=== PATIENT | female | born 1990 | race Caucasian/White ===

== ENCOUNTER → 2021-04-14 | Outpatient (CLI) | payer OTHER ==
[2021-04-14 15:22] LABS: Basophils # (A) 0.04 X 10*3/uL (0.00-0.10); Basophils % (A) 0.3 %; Eosinophils % (A) 0.8 %; HCT 44.8 % (37.2-46.3); HGB 14.7 g/dL (12.0-15.0); Lymphocytes # (A) 3.66 X 10*3/uL (0.90-5.00); Lymphocytes % (A) 30.2 %; MCH 29.4 pg (27.0-32.0); MCHC 32.8 g/dL (32.0-37.0); MCV 89.6 fL (80.0-97.0); Mean Platelet Volume 10.2 fL (9.5-12.2); Monocytes # (A) 0.76 X 10*3/uL (0.20-1.00); Monocytes % (A) 6.3 %; Neutrophils # (A) 7.52 X 10*3/uL (1.80-7.70); Neutrophils % (A) 62.2 %; Platelet Count 256 X 10*3/uL (140-440); RDW 13.1 % (11.5-14.5); WBC 12.11 X 10*3/uL (4.50-10.00)
[2021-04-15 00:25] LABS: African American GFR (CKD) 131.9 (60.0-200.0); Albumin 4.5 g/dL (3.80-4.90); Albumin/Globulin Ratio 1.55 (1.60-3.17); Anion Gap 12.6 mmol/L (4.00-12.00); BUN/Creat Ratio 15.71 Ratio (12.00-20.00); Calcium 9.6 mg/dL (8.7-10.3); Carbon Dioxide 20.4 mmol/L (21.6-31.8); Globulin 2.9 g/dL (1.6-3.3); HCG,Quantitative Serum 10356.8 mIU/mL; Non-African American GFR(CKD) 113.8 (60.0-200.0); Potassium 4.2 mmol/L (3.5-5.5); Total Bilirubin 0.4 mg/dL (0.3-1.2); Total Protein 7.4 g/dL (6.2-8.2)
== END | disposition home or self-care (01) ==
LOC: LABWHC1 10:22
PROVIDERS: ATTEND Family Medicine
DX: O09.90 Supervision of high risk pregnancy, unspecified, unspecified trimester (principal); Z3A.00 Weeks of gestation of pregnancy not specified
CPT/HCPCS: 36415; 80053; 84702; 85025; 86592; 86780; 87340

== ENCOUNTER 2022-03-30 17:06 | Emergency (ER) | payer OTHER ==
--- NOTE | 2022-03-30 17:51 | ED ---
General Adult HPI - General Chief complaint: Fall Stated complaint: altered mental status Time Seen by Provider: 03/30/22 17:17 Source: patient Mode of arrival: EMS - History of Present Illness Initial comments: Dictation was produced using [employer] dictation software. please excuse any grammatical, word or spelling errors. Chief Complaint: Patient 32-year-old female presents emergency department for syncope fall and concerns of opiate toxicity History of Present Illness: Is a 32-year-old female she was brought in by EMS from [facility]. Patient was trying to check in for polysubstance abuse. While being checked in she was noted to the very sleepy. She fell and struck her head per EMS. She is placed in a c-collar brought to the emergency room. Patient did admit to EMS that she used heroin and crack today. She states that she's been sleepy ever since being . She states she is 26 weeks. She denies any complaints at this time. Patient is a poor historian. She sleepy at the bedside. The ROS documented in this emergency department record has been reviewed and confirmed by me. Those systems with pertinent positive or negative responses have been documented in the HPI. All other systems are other negative and/or no ncontributory. PHYSICAL EXAM: General Impression: Alert and oriented x3, not in acute distress, sleepy but arousable with voice HEENT: Normocephalic atraumatic, extra-ocular movements intact, pupils equal and reactive to light bilaterally, mucous membranes moist. Cardiovascular: Heart regular rate and rhythm Chest: Able to complete full sentences, no retractions, no tachypnea Abdomen: abdomen soft, non-tender, non-distended, no organomegaly, gravid Musculoskeletal: Pulses present and equal in all extremities, no peripheral edema Motor: no focal deficits noted Neurological: CN II-XII grossly intact, no focal motor or sensory deficits noted Skin: Intact with no visualized rashes Psych: Normal affect and mood ED course: 32 yo female who is allegedly 26 weeks presents after synco pe and fall. Patient does have physical exam features to suggest opiate toxicity. She is sleepy however she is not respiratory depressed. Signs upon arrival are within acceptable limits. Patient does not have any signs of traumatic injuries. Patient became agitated and belligerent at approximately 8:00 PM. She did not appear to be showing signs of opiate toxidrome. CBC unremarkable. Metabolic panel shows mild hyperglycemia with the level of 69. Rest of metabolic panel is negative. Patient given dextrose and oral intake. Repeat blood glucose levels are normal. Computed tomography scan of the brain and C-spine shows no acute processes. Patient c-collar was cleared. EKG interpretation: Ventricular rate, sinus rhythm,. 140, care is 113, QTc 450. No IA prolongation, no QTC prolongation, no ST or T-wave changes noted. Overall, this EKG is unremarkable ultrasound was obtained showing no acute processes. There is a single live intrauterine . 5 weeks and 5 days per ultrasound measurements. Heart rate is 126. No obstetrical complications this ultrasound. Patient related bedside 9:45 PM found to be stable medical condition. Patient is awake alert and well-appearing. 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 Patient is urged not to use any illicit substances during this because but may put baby and herself at risk. Patient understands. She is advised to follow-up with her electronics hardware design engineer. Patient told to continue taking vitamins. - Related Data Home Medications Medication Instructions Recorded Confirmed Acetaminophen [Tylenol 8 Hour] 650 mg PO Q6H PRN 03/30/22 03/30/22 Folagent Dha Supplement 1 cap PO DAILY 03/30/22 03/30/22 Zofran (Unknown Dose) 1 dose PO Q6H PRN 03/30/22 03/30/22 Allergies Allergy/AdvReac Type Severity Reaction Status Date / Time No Known Allergies Allergy Verified 03/30/22 17:54 Review of Systems ROS Statement: Those systems with pertinent positive or pertinent negative responses have been documented in the HPI. ROS Other: All systems not noted in ROS Statement are negative. Past Medical History Past Medical History: No Reported History History of Any Multi-Drug Resistant Organisms: None Reported Past Surgical History: No Surgical Hx Reported Past Psychological History: No Psychological Hx Reported Smoking Status: Current every day smoker Past Alcohol Use History: None Reported Past Drug Use History: Heroin, IV Drug Use Course Vital Signs 03/30/22 03/30/22 17:11 18:56 Temperature 98.1 F Pulse Rate 78 67 Respiratory 18 14 Rate Blood Pressure 108/66 112/75 O2 Sat by Pulse 98 99 Oximetry Medical Decision Making - Lab Data Result diagrams: 03/30/22 18:23 03/30/22 18:23 Lab Results 03/30/22 03/30/22 03/30/22 Range/Units 18:23 18:23 18:23 WBC 8.2 (3.8-10.6) k/uL RBC 3.77 L (3.80-5.40) m/uL Hgb 11.4 (11.4-16.0) gm/dL Hct 33.4 L (34.0-46.0) % MCV 88.6 (80.0-100.0) fL MCH 30.3 (25.0-35.0) pg MCHC 34.2 (31.0-37.0) g/dL RDW 12.7 (11.5-15.5) % Plt Count 213 (150-450) k/uL MPV 7.5 Neutrophils % 66 % Lymphocytes % 25 % Monocytes % 5 % Eosinophils % 2 % Basophils % 0 % Neutrophils # 5.3 (1.3-7.7) k/uL Lymphocytes # 2.1 (1.0-4.8) k/uL Monocytes # 0.4 (0-1.0) k/uL Eosinophils # 0.1 (0-0.7) k/uL Basophils # 0.0 (0-0.2) k/uL Sodium 134 L (137-145) mmol/L Potassium 2.9 L (3.5-5.1) mmol/L Chloride 102 (98-107) mmol/L Carbon Dioxide 26 (22-30) mmol/L Anion Gap 6 mmol/L BUN 6 L (7-17) mg/dL Creatinine 0.52 (0.52-1.04) mg/dL Est GFR (CKD-EPI)AfAm >90 (>60 ml/min/1.73 sqM) Est GFR (CKD-EPI)NonAf >90 (>60 ml/min/1.73 sqM) Glucose 69 L (74-99) mg/dL Calcium 8.8 (8.4-10.2) mg/dL Urine Opiates Screen Detected H (NotDetected) Ur Oxycodone Screen Not Detected (NotDetected) Urine Methadone Screen Not Detected (NotDetected) Ur Propoxyphene Screen Not Detected (NotDetected) Ur Barbiturates Screen Not Detected (NotDetected) U Tricyclic Antidepress Not Detected (NotDetected) Ur Phencyclidine Scrn Not Detected (NotDetected) Ur Amphetamines Screen Not Detected (NotDetected) U Methamphetamines Scrn Not Detected (NotDetected) U Benzodiazepines Scrn Not Detected (NotDetected) Urine Cocaine Screen Detected H (NotDetected) U Marijuana (THC) Screen Not Detected (NotDetected) Disposition Clinical Impression: Opiate dependence Disposition: HOME SELF-CARE Condition: Fair Instructions (If sedation given, give patient instructions): Opioid Use Disorder (ED), at 23 to 26 Weeks (ED) Additional Instructions: Follow-up with the electronics hardware design engineer. Is patient prescribed a controlled substance at d/c from ED?: No Time of Disposition: 21:43
[2022-03-30 18:28] LABS: Basophils % (A) 0 %; Eosinophils # (A) 0.1 k/uL (0-0.7); Eosinophils % (A) 2 %; HCT 33.4 % (34.0-46.0); HGB 11.4 gm/dL (11.4-16.0); Lymphocytes # (A) 2.1 k/uL (1.0-4.8); Lymphocytes % (A) 25 %; MCH 30.3 pg (25.0-35.0); MCHC 34.2 g/dL (31.0-37.0); MCV 88.6 fL (80.0-100.0); Mean Platelet Volume 7.5; Monocytes # (A) 0.4 k/uL (0-1.0); Monocytes % (A) 5 %; Neutrophils # (A) 5.3 k/uL (1.3-7.7); Neutrophils % (A) 66 %; Platelet Count 213 k/uL (150-450); RBC 3.77 m/uL (3.80-5.40); RDW 12.7 % (11.5-15.5); WBC 8.2 k/uL (3.8-10.6)
[2022-03-30 18:36] LABS: African American GFR (CKD) >90 (>60 ml/min/1.73 sqM); Anion Gap 6 mmol/L; Blood Urea Nitrogen 6 mg/dL (7-17); Calcium 8.8 mg/dL (8.4-10.2); Carbon Dioxide 26 mmol/L (22-30); Chloride 102 mmol/L (98-107); Glucose 69 mg/dL (74-99); Non-African American GFR(CKD) >90 (>60 ml/min/1.73 sqM); Potassium 2.9 mmol/L (3.5-5.1); Sodium 134 mmol/L (137-145)
[2022-03-30 18:37] LABS: Amphetamine Screen,Urine Not Detected (NotDetected); Barbiturate Screen,Urine Not Detected (NotDetected); Benzodiazepines Screen,Urine Not Detected (NotDetected); Cocaine Screen,Urine Detected (NotDetected); Methadone Screen, Urine Not Detected (NotDetected); Opiate Screen,Urine Detected (NotDetected); Oxycodone Screen, Urine Not Detected (NotDetected); Phencyclidine Screen,Urine Not Detected (NotDetected); Tricyclic Antidepressant,Urine Not Detected (NotDetected); Urn Cannabinoid Scrn Not Detected (NotDetected)
[2022-03-30] MEDS ORDERED: DEXTROSE 50% SYRINGE 50 ML IVP STA (18:42)
--- NOTE | 2022-03-30 19:24 | CT ---
EXAMINATION TYPE: CT brain cspine wo con CT DLP: 1442.7 mGycm, Automated exposure control for dose reduction was used. DATE OF EXAM: 03/30/2022 6:55 PM COMPARISON: None.. CLINICAL INDICATION:Female, 32 years old with history of syncope, fall, ; Syncope, fall, 26 w eeks , pt shielded TECHNIQUE: Brain: Multiple axial CT images of the brain were obtained without IV contrast. Cspine: Axial CT images from the skull base to the inferior aspect of T2 we obtained without intraven ous contrast. Coronal and sagittal reformatted images were also reviewed. FINDINGS: Brain: Extra-axial spaces: No abnormal extra-axial fluid collections. Ventricular system: Within normal limits Cerebral parenchyma: No acute intraparenchymal hemorrhage or mass effect. The grissom-white junction is well differentiated. Cerebellum: Unremarkable. Mass effect: No evidence of midline shift. Intracranial vasculature: unremarkable Soft tissues: Normal. Calvarium/osseous structures: No depressed skull fracture. Ossified Cephalhematoma noted on the left. Paranasal sinuses and mastoid air cells: Mild scattered mucosal thickening and or secretions. Visualized orbits: Orbital contents are intact. Cervical spine: Fracture: None. Osseous structures: Unremarkable Vertebral alignment: Within normal limits. Spinal canal/Neural Foramina: No evidence of significant spinal canal narrowing. No evidence for sign ificant neural foraminal stenosis. Neck soft tissues: Prevertebral soft tissues are within normal limits. Other: The airway is patent. The lung apices are clear. IMPRESSION: 1. No acute intracranial process. 2. No evidence of cervical spine fracture.
--- NOTE | 2022-03-30 21:26 | US ---
EXAMINATION TYPE: US OB >= 14 wk fetus DATE OF EXAM: 03/30/2022 COMPARISON: None CLINICAL HISTORY: , fall patient had a fall and hit head. patient used heroin this morning. T echnical limitations, patient uncooperative, unable to hold still or answer questions TECHNIQUE: Transabdominal (TA) GESTATIONAL AGE / DATING Physician Established: Not yet established Dates by LMP: LMP unknown Dates by First Scan: No previous this is first scan Dates by Current Scan: (26 weeks/0 days) EDC: 07/06/22 SURVEY IUP: Single PLACENTA: Anterior - heterogenous PREVIA: No Previa ROQUE: 13.8 cm Normal CERVICAL LENGTH (transabdominal: norm > 3.0cm): 3.2 cm BIOMETRY PRESENTATION: Vertex LIE: Longitudinal BPD: 6.4 cm 26 weeks / 0 days HC: 23.5 cm 25 weeks / 4 days AC: 22.0 cm 26 weeks / 3 days FL: 4.7 cm 25 weeks / 5 days ESTIMATED WEIGHT IN GRAMS: 881 grams ESTIMATED WEIGHT IN LBS/OZ: 1 lbs. 15 oz. HC/AC: 1.07 FL/AC: 21% HEART RATE: 126 bpm RHYTHM: Normal IMPRESSION: Single live intrauterine . The liver. The liver and the stomach
[2022-03-30 21:57] LABS: Glucose,Whole Blood 65 mg/dL (70-110)
[2022-03-30 22:22] LABS: Glucose,Whole Blood 91 mg/dL (70-110)
[2022-03-30 23:31] VITALS: BP 121/66; PULSE 75; RESP 18; TEMP 98.2
== END 2022-03-30 23:31 | disposition home or self-care (01) ==
LOC: EC 17:06
DX: F11.20 Opioid dependence, uncomplicated (principal); F17.200 Nicotine dependence, unspecified, uncomplicated
CPT/HCPCS: 36415; 70450; 72125; 76805; 80048; 80306; 85025; 93005; 96360; 99285

== ENCOUNTER 2022-03-31 11:24 | Inpatient (IN) | payer OTHER ==
[2022-03-31] MEDS ORDERED: SODIUM CHLORIDE 0.9% 1,000 ML IV ONE (11:44)
[2022-03-31] MEDS ORDERED: METOCLOPRAMIDE 5 MG/ML 2 ML VIAL IVP STA (11:46)
--- NOTE | 2022-03-31 11:48 | ED ---
Altered Mental Status HPI - General Chief Complaint: Altered Mental Status Stated Complaint: AMS Time Seen by Provider: 03/31/22 11:37 Source: EMS, RN notes reviewed Mode of arrival: EMS Limitations: altered mental status - History of Present Illness Initial Comments: This is a 32-year-old female who presents to the emergency department for altered mental status. The patient was evaluated in the emergency department yesterday, after attempting to check herself into [facility], and subsequently having a fall due to her lethargy and altered mental status secondary to polysubstance abuse. Her symptoms improved and she was subsequently discharged and returned to [facility]. She is being treated at [facility] for opioid detox, specifically heroin. She was sent back to the emergency department today, as [facility] noted that the patient was acting extremely lethargic with unsteady gait. She is also complaining of intermittent nausea and vomiting with yellow/brown bile. It is unclear what happened between the period of the patient's discharge yesterday and early this morning that caused the abrupt change in symptoms. She is also noted to be 26 weeks and had an unremarkable ultrasound in the emergency department yesterday. The patient did say that she was receiving care yesterday, however it is not clear if the patient was being truthful or where she is getting care. Upon examination the patient is very lethargic and unable to produce audible words. She is also actively vomiting. Denies any fevers, chills, sore throat, cough, dyspnea, chest pain, palpitations, abdominal pain, diarrhea, back pain, or headaches. MD Complaint: altered mental status, decreased responsiveness Context: drug abuse, history of similar presentation Associated Symptoms: nausea/vomiting - Related Data Home Medications Medication Instructions Recorded Confirmed Acetaminophen [Tylenol 8 Hour] 650 mg PO Q6H PRN 03/30/22 03/31/22 Folagent Dha Supplement 1 cap PO DAILY 03/30/22 03/31/22 Zofran (Unknown Dose) 1 dose PO Q6H PRN 03/30/22 03/31/22 Allergies Allergy/AdvReac Type Severity Reaction Status Date / Time No Known Allergies Allergy Verified 03/31/22 12:09 Review of Systems ROS Statement: Those systems with pertinent positive or pertinent negative responses have been documented in the HPI. ROS Other: All systems not noted in ROS Statement are negative. Past Medical History Past Medical History: No Reported History History of Any Multi-Drug Resistant Organisms: None Reported Past Surgical History: No Surgical Hx Reported Past Psychological History: No Psychological Hx Reported Smoking Status: Current every day smoker Past Alcohol Use History: None Reported Past Drug Use History: Heroin, IV Drug Use General Exam Limitations: altered mental status General appearance: lethargic Head exam: Present: atraumatic, normocephalic, normal inspection Eye exam: Present: normal appearance, PERRL, EOMI. Absent: scleral icterus, conjunctival injection, periorbital swelling Respiratory exam: Present: normal lung sounds bilaterally. Absent: respiratory distress, wheezes, rales, rhonchi, stridor Cardiovascular Exam: Present: regular rate, normal rhythm, normal heart sounds. Absent: systolic murmur, diastolic murmur, rubs, gallop, clicks Skin exam: Present: warm, dry, intact, normal color. Absent: rash Course Vital Signs 03/31/22 03/31/22 11:29 13:12 Temperature 97.9 F Pulse Rate 51 L 56 L Respiratory 16 16 Rate Blood Pressure 111/66 111/64 O2 Sat by Pulse 99 100 Oximetry Medical Decision Making - Medical Decision Making This is a 32-year-old female who presents to the emergency department for altered mental status. She is currently a patient at [facility] for opioid detox. Patient's lab work was consistent with dehydration, she was given a liter bolus of normal saline as well as Reglan for the nausea. Patient continues to be confused and disoriented, she is very lethargic and unable to put together words very clearly. She is aware that she is in [place], but cannot name the hospital. Patient noted to have hypokalemia, which was subsequ ently treated with 20 mEq of K-dur. I did try to contact [facility] multiple times for a more thorough history, however I was unable to reach them. The patient was noted to be alert and oriented following discharge yesterday. It is unclear what happened between that time frame and this morning to cause her lethargy and delirium. She declines any substance use between that time frame. Given the persistent symptoms, repeat computed tomography scan of the brain was obtained, this revealed no acute irregularities. OB did auscultate heart tones and found them to be within normal limits. Actual values will be recorded in the chart, but are currently pending. Given that the patient continues to be lethargic and delirious, will plan to admit. She is unable to return to [facility] in this condition. Ammonia level and ABG pending. Repeat EKG will be needed, there was difficulty in obtaining an accurate first one with the patient's positioning. This case was discussed in detail with the attending ED physician. Presentation, findings, and treatment plan discussed in detail as well. - Lab Data Result diagrams: 03/31/22 12:15 03/31/22 12:15 Lab Results 03/31/22 03/31/22 03/31/22 Range/Units 12:15 12:15 12:15 WBC 9.6 (3.8-10.6) k/uL RBC 3.99 (3.80-5.40) m/uL Hgb 12.4 (11.4-16.0) gm/dL Hct 35.7 (34.0-46.0) % MCV 89.5 (80.0-100.0) fL MCH 31.0 (25.0-35.0) pg MCHC 34.6 (31.0-37.0) g/dL RDW 13.2 (11.5-15.5) % Plt Count 253 (150-450) k/uL MPV 7.7 Neutrophils % 87 % Lymphocytes % 10 % Monocytes % 2 % Eosinophils % 0 % Basophils % 0 % Neutrophils # 8.4 H (1.3-7.7) k/uL Lymphocytes # 1.0 (1.0-4.8) k/uL Monocytes # 0.2 (0-1.0) k/uL Eosinophils # 0.0 (0-0.7) k/uL Basophils # 0.0 (0-0.2) k/uL Sodium 134 L (137-145) mmol/L Potassium 3.0 L (3.5-5.1) mmol/L Chloride 103 (98-107) mmol/L Carbon Dioxide 25 (22-30) mmol/L Anion Gap 6 mmol/L BUN 5 L (7-17) mg/dL Creatinine 0.47 L (0.52-1.04) mg/dL Est GFR (CKD-EPI)AfAm >90 (>60 ml/min/1.73 sqM) Est GFR (CKD-EPI)NonAf >90 (>60 ml/min/1.73 sqM) Glucose 116 H (74-99) mg/dL Calcium 8.5 (8.4-10.2) mg/dL Total Bilirubin 0.4 (0.2-1.3) mg/dL AST 24 (14-36) U/L ALT 13 (4-34) U/L Alkaline Phosphatase 96 (38-126) U/L Troponin I <0.012 (0.000-0.034) ng/mL Total Protein 6.5 (6.3-8.2) g/dL Albumin 3.4 L (3.5-5.0) g/dL HCG, Quant 61323.1 mIU/mL Urine Color Urine Appearance (Clear) Urine pH (5.0-8.0) Ur Specific [place] (1.001-1.035) Urine Protein (Negative) Urine Glucose (UA) (Negative) Urine Ketones (Negative) Urine Blood (Negative) Urine Nitrite (Negative) Urine Bilirubin (Negative) Urine Urobilinogen (<2.0) mg/dL Ur Leukocyte Esterase (Negative) Urine WBC (0-5) /hpf Ur Squamous Epith Cells (0-4) /hpf Urine Mucus (None) /hpf Urine Opiates Screen (NotDetected) Ur Oxycodone Screen (NotDetected) Urine Methadone Screen (NotDetected) Ur Propoxyphene Screen (NotDetected) Ur Barbiturates Screen (NotDetected) U Tricyclic Antidepress (NotDetected) Ur Phencyclidine Scrn (NotDetected) Ur Amphetamines Screen (NotDetected) U Methamphetamines Scrn (NotDetected) U Benzodiazepines Scrn (NotDetected) Urine Cocaine Screen (NotDetected) U Marijuana (THC) Screen (NotDetected) 03/31/22 03/31/22 Range/Units 12:30 12:30 WBC (3.8-10.6) k/uL RBC (3.80-5.40) m/uL Hgb (11.4-16.0) gm/dL Hct (34.0-46.0) % MCV (80.0-100.0) fL MCH (25.0-35.0) pg MCHC (31.0-37.0) g/dL RDW (11.5-15.5) % Plt Count (150-450) k/uL MPV Neutrophils % % Lymphocytes % % Monocytes % % Eosinophils % % Basophils % % Neutrophils # (1.3-7.7) k/uL Lymphocytes # (1.0-4.8) k/uL Monocytes # (0-1.0) k/uL Eosinophils # (0-0.7) k/uL Basophils # (0-0.2) k/uL Sodium (137-145) mmol/L Potassium (3.5-5.1) mmol/L Chloride (98-107) mmol/L Carbon Dioxide (22-30) mmol/L Anion Gap mmol/L BUN (7-17) mg/dL Creatinine (0.52-1.04) mg/dL Est GFR (CKD-EPI)AfAm (>60 ml/min/1.73 sqM) Est GFR (CKD-EPI)NonAf (>60 ml/min/1.73 sqM) Glucose (74-99) mg/dL Calcium (8.4-10.2) mg/dL Total Bilirubin (0.2-1.3) mg/dL AST (14-36) U/L ALT (4-34) U/L Alkaline Phosphatase (38-126) U/L Troponin I (0.000-0.034) ng/mL Total Protein (6.3-8.2) g/dL Albumin (3.5-5.0) g/dL HCG, Quant mIU/mL Urine Color Yellow Urine Appearance Cloudy H (Clear) Urine pH 8.0 (5.0-8.0) Ur Specific [place] 1.013 (1.001-1.035) Urine Protein Trace H (Negative) Urine Glucose (UA) Negative (Negative) Urine Ketones 4+ H (Negative) Urine Blood Negative (Negative) Urine Nitrite Negative (Negative) Urine Bilirubin Negative (Negative) Urine Urobilinogen 2.0 (<2.0) mg/dL Ur Leukocyte Esterase Small H (Negative) Urine WBC 15 H (0-5) /hpf Ur Squamous Epith Cells 8 H (0-4) /hpf Urine Mucus Rare H (None) /hpf Urine Opiates Screen Detected H (NotDetected) Ur Oxycodone Screen Not Detected (NotDetected) Urine Methadone Screen Not Detected (NotDetected) Ur Propoxyphene Screen Not Detected (NotDetected) Ur Barbiturates Screen Not Detected (NotDetected) U Tricyclic Antidepress Not Detected (NotDetected) Ur Phencyclidine Scrn Not Detected (NotDetected) Ur Amphetamines Screen Not Detected (NotDetected) U Methamphetamines Scrn Not Detected (NotDetected) U Benzodiazepines Scrn Not Detected (NotDetected) Urine Cocaine Screen Detected H (NotDetected) U Marijuana (THC) Screen Not Detected (NotDetected) - Radiology Data Radiology results: report reviewed, image reviewed Disposition Clinical Impression: Altered mental status, Opioid abuse with withdrawal Disposition: ADMITTED IP TO THIS HOSP
[2022-03-31 12:40] LABS: Basophils % (A) 0 %; Eosinophils % (A) 0 %; HCT 35.7 % (34.0-46.0); HGB 12.4 gm/dL (11.4-16.0); Lymphocytes % (A) 10 %; MCHC 34.6 g/dL (31.0-37.0); MCV 89.5 fL (80.0-100.0); Mean Platelet Volume 7.7; Monocytes # (A) 0.2 k/uL (0-1.0); Monocytes % (A) 2 %; Neutrophils # (A) 8.4 k/uL (1.3-7.7); Neutrophils % (A) 87 %; Platelet Count 253 k/uL (150-450); RBC 3.99 m/uL (3.80-5.40); RDW 13.2 % (11.5-15.5); WBC 9.6 k/uL (3.8-10.6)
[2022-03-31 12:47] LABS: Appearance,Urine Cloudy (Clear); Bilirubin,Urine Negative (Negative); Blood,Urine Negative (Negative); Color,Urine Yellow; Glucose,Urine (UA) Negative (Negative); Ketones,Urine 4+ (Negative); Leukocyte Esterase,Urine Small (Negative); Mucus,Urine Rare /hpf; Nitrite,Urine Negative (Negative); Protein,Urine Trace (Negative); Specific Gravity,Urine 1.013 (1.001-1.035); Squamous Epithelial Cell,Urine 8 /hpf (0-4); WBC,Urine 15 /hpf (0-5)
[2022-03-31 12:55] LABS: ALT 13 U/L (4-34); AST 24 U/L (14-36); African American GFR (CKD) >90 (>60 ml/min/1.73 sqM); Albumin 3.4 g/dL (3.5-5.0); Alkaline Phosphatase 96 U/L (38-126); Anion Gap 6 mmol/L; Blood Urea Nitrogen 5 mg/dL (7-17); Calcium 8.5 mg/dL (8.4-10.2); Carbon Dioxide 25 mmol/L (22-30); Chloride 103 mmol/L (98-107); Glucose 116 mg/dL (74-99); Non-African American GFR(CKD) >90 (>60 ml/min/1.73 sqM); Sodium 134 mmol/L (137-145); Total Bilirubin 0.4 mg/dL (0.2-1.3); Total Protein 6.5 g/dL (6.3-8.2)
[2022-03-31] MEDS ORDERED: POTASSIUM CHLORIDE ER 20 MEQ TAB.ER PO STA (13:03)
[2022-03-31 13:24] LABS: Amphetamine Screen,Urine Not Detected (NotDetected); Barbiturate Screen,Urine Not Detected (NotDetected); Benzodiazepines Screen,Urine Not Detected (NotDetected); Cocaine Screen,Urine Detected (NotDetected); Methadone Screen, Urine Not Detected (NotDetected); Opiate Screen,Urine Detected (NotDetected); Oxycodone Screen, Urine Not Detected (NotDetected); Phencyclidine Screen,Urine Not Detected (NotDetected); Tricyclic Antidepressant,Urine Not Detected (NotDetected); Urn Cannabinoid Scrn Not Detected (NotDetected)
[2022-03-31 13:35] LABS: HCG,Quantitative Serum 16006.1 mIU/mL
[2022-03-31] MEDS ORDERED: SODIUM CHLORIDE 0.9% 1,000 ML IV STA (14:23)
--- NOTE | 2022-03-31 14:55 | CT ---
EXAMINATION TYPE: CT brain wo con CT DLP: 1092.4 mGycm, Automated exposure control for dose reduction was used. DATE OF EXAM: 03/31/2022 2:38 PM COMPARISON: CT brain C-spine 03/30/2022 CLINICAL INDICATION:Female, 32 years old with history of Altered mental status, ams TECHNIQUE: Brain: Multiple axial CT images of the brain were obtained without IV contrast. FINDINGS: Brain: Extra-axial spaces: No abnormal extra-axial fluid collections. Ventricular system: Within normal limits Cerebral parenchyma: No acute intraparenchymal hemorrhage or mass effect. The grissom-white junction is well differentiated. Cerebellum: Unremarkable. Mass effect: No evidence of midline shift. Intracranial vasculature: unremarkable Soft tissues: Normal. Calvarium/osseous structures: No depressed skull fracture. Ossified cephalohematoma noted on the left . Paranasal sinuses and mastoid air cells: Mild scattered paranasal sinus disease. Mastoid air cells ar e clear. Visualized orbits: Orbital contents are intact. IMPRESSION: No acute intracranial process. No significant change from prior examination on 03/30/2022.
[2022-03-31] MEDS ORDERED: KETOROLAC 15 MG/ML 1 ML VIAL IVP PRN (16:24)
[2022-03-31] MEDS ORDERED: ACETAMINOPHEN TAB 325 MG TAB PO PRN (16:24)
[2022-03-31] MEDS ORDERED: NALOXONE 0.4 MG/ML 1 ML VIAL IV PRN ×2 (16:24→17:01)
--- NOTE | 2022-03-31 17:20 | P.HPIM ---
History of Present Illness H&P Date: 03/31/22 Chief Complaint: Altered mental status 32-year-old female who is 26 weeks , presents to emergency department with altered mental status. She was seen in the ED yesterday when she was attempting to check herself into [facility]. She had fallen yesterday and was an altered mental state but eventually improved and was discharged from the ED in stable condition yesterday. She was being treated as [facility] for heroin withdrawal but was brought back to the ED today as she was extremely lethargic with an unsteady gait. It is unclear what occurred between her discharge from the ED yesterday and her presentation again today. She denies taking any narcotics or illicit substances since then. Her urine toxin today is positive for cocaine and opiates although this could be residual from her previous use. Patient appears to be disheveled today, she is lethargic, answering some questions but after multiple repetitions. She had a CT of the head repeated ag ain today which did not show any acute findings. Blood work was fairly unremarkable other than a potassium level of 3.0. She was also actively vomiting in the ED upon arrival but appeared to be yellow/brown fluid. She received IV fluids, Reglan, oral potassium. After observing her for a few hours in the ED without any improvement, decision was made to admit the patient for closer observation as she is unsafe to return to [facility]. An ABG and ammonia level was ordered in the ED and is still pending at this time Review of Systems Constitutional: Reports as per HPI Past Medical History Past Medical History: No Reported History History of Any Multi-Drug Resistant Organisms: None Reported Past Surgical History: No Surgical Hx Reported Past Psychological History: No Psychological Hx Reported Smoking Status: Current every day smoker Past Alcohol Use History: None Reported Past Drug Use History: Heroin, IV Drug Use Medications and Allergies Home Medications Medication Instructions Recorded Confirmed Type Acetaminophen [Tylenol 8 Hour] 650 mg PO Q6H PRN 03/30/22 03/31/22 History Folagent Dha Supplement 1 cap PO DAILY 03/30/22 03/31/22 History Zofran (Unknown Dose) 1 dose PO Q6H PRN 03/30/22 03/31/22 History Allergies Allergy/AdvReac Type Severity Reaction Status Date / Time No Known Allergies Allergy Verified 03/31/22 12:09 Physical Exam Osteopathic Statement: *. No significant issues noted on an osteopathic str uctural exam other than those noted in the History and Physical/Consult. Vitals: Vital Signs Temp Pulse Resp BP Pulse Ox 03/31/22 13:12 56 L 16 111/64 100 03/31/22 11:29 97.9 F 51 L 16 111/66 99 Intake and Output 03/31/22 03/31/22 03/31/22 06:59 14:59 22:59 Other: Weight 72.575 kg - Constitutional General appearance: disheveled, mild distress - EENT Eyes: EOMI, PERRLA - Neck Neck: no lymphadenopathy, normal ROM, no rigidity - Respiratory Respiratory: bilateral: CTA, negative: rhonchi, wheezing - Cardiovascular Rhythm: regular Abnormal Heart Sounds: no systolic murmur, no diastolic murmur - Gastrointestinal General gastrointestinal: decreased bowel sounds, distended, no tenderness - Integumentary Integumentary: decreased turgor, no rash, ulcer - Neurologic Patient is restless, awake, eyes are open, but does not consistently track or answer questions. He questions a repeated, she does respond but any difficult to understand manner. She is moving all her extremities spontaneously, no seizures or tremors, Neurologic: CNII-XII intact - Musculoskeletal Musculoskeletal: no generalized weakness - Psychiatric Awake and alert but confused, flat affect, speech is incoherent, poor insight and memory recall Results CBC & Chem 7: 03/31/22 12:15 03/31/22 12:15 Labs: Abnormal Lab Results - Last 24 Hours (Table) 03/31/22 03/31/22 03/31/22 Range/Units 12:15 12:15 12:30 Neutrophils # 8.4 H (1.3-7.7) k/uL Sodium 134 L (137-145) mmol/L Potassium 3.0 L (3.5-5.1) mmol/L BUN 5 L (7-17) mg/dL Creatinine 0.47 L (0.52-1.04) mg/dL Glucose 116 H (74-99) mg/dL Albumin 3.4 L (3.5-5.0) g/dL Urine Appearance (Clear) Urine Protein (Negative) Urine Ketones (Negative) Ur Leukocyte Esterase (Negative) Urine WBC (0-5) /hpf Ur Squamous Epith Cells (0-4) /hpf Urine Mucus (None) /hpf Urine Opiates Screen Detected H (NotDetected) Urine Cocaine Screen Detected H (NotDetected) 03/31/22 Range/Units 12:30 Neutrophils # (1.3-7.7) k/uL Sodium (137-145) mmol/L Potassium (3.5-5.1) mmol/L BUN (7-17) mg/dL Creatinine (0.52-1.04) mg/dL Glucose (74-99) mg/dL Albumin (3.5-5.0) g/dL Urine Appearance Cloudy H (Clear) Urine Protein Trace H (Negative) Urine Ketones 4+ H (Negative) Ur Leukocyte Esterase Small H (Negative) Urine WBC 15 H (0-5) /hpf Ur Squamous Epith Cells 8 H (0-4) /hpf Urine Mucus Rare H (None) /hpf Urine Opiates Screen (NotDetected) Urine Cocaine Screen (NotDetected) Assessment and Plan Assessment: # Acute metabolic encephalopathy -Patient has a known history of substance abuse including heroin and cocaine -She was seen in the ED yesterday where she was discharged [facility] to begin treatment for heroin detoxification -It is unclear if she has taken any other substances in the last 24 hours. Urine tox screen still positive for cocaine and opiates -Head CT shows no acute findings -Patient has no fever, no leukocytosis, no nuchal rigidity -This may possibly be due to substance abuse or withdrawal -ABG and ammonia level pending -Continue to monitor, if mentation worsens then lumbar puncture, MRI, and neurology consult is warranted # Hypokalemia -Potassium 3.0 -Most likely secondary to decreased oral intake -Received oral potassium in the ED -Check Magnesium level # History of polysubstance abuse #- 26 weeks - ultrasound was unremarkable in the ED yesterday -Patient further recommendations from obstetrics
[2022-03-31 17:39] LABS: ABG Base Excess -1.4 mmol/L; ABG HCO3 21 mmol/L (21-25); ABG Oxygen Saturation 98.9 % (94-97); ABG PCO2 24 mmHg (35-45); ABG PH 7.55 (7.35-7.45); ABG PO2 100 mmHg (83-108); ABG TCO2 22 mmol/L (19-24); Allen Test Performed? Yes
[2022-03-31] MEDS: ONDANSETRON 4 MG/2 ML VIAL IVP PRN (23:03)
[2022-03-31] MEDS: SODIUM CHLORIDE 0.9% 1,000 ML IV SCH (23:04)
[2022-04-01] MEDS ORDERED: METOCLOPRAMIDE 5 MG/ML 2 ML VIAL IVP STA (02:38)
[2022-04-01] MEDS: [UNRECOGNIZED DRUG - OTHER] PO SCH (08:25)
[2022-04-01 08:59] LABS: Basophils % (A) 0 %; Eosinophils # (A) 0.1 k/uL (0-0.7); Eosinophils % (A) 1 %; HCT 35.6 % (34.0-46.0); Lymphocytes # (A) 1.3 k/uL (1.0-4.8); Lymphocytes % (A) 11 %; MCH 30.5 pg (25.0-35.0); MCHC 33.8 g/dL (31.0-37.0); MCV 90.4 fL (80.0-100.0); Mean Platelet Volume 7.9; Monocytes # (A) 0.5 k/uL (0-1.0); Monocytes % (A) 4 %; Neutrophils # (A) 10.1 k/uL (1.3-7.7); Neutrophils % (A) 83 %; Platelet Count 274 k/uL (150-450); RBC 3.94 m/uL (3.80-5.40); RDW 13.2 % (11.5-15.5); WBC 12.1 k/uL (3.8-10.6)
[2022-04-01 09:08] LABS: ALT 13 U/L (4-34); AST 21 U/L (14-36); African American GFR (CKD) >90 (>60 ml/min/1.73 sqM); Albumin 3.2 g/dL (3.5-5.0); Albumin/Globulin Ratio 1.1; Alkaline Phosphatase 83 U/L (38-126); Anion Gap 7 mmol/L; Blood Urea Nitrogen 8 mg/dL (7-17); Calcium 8.2 mg/dL (8.4-10.2); Carbon Dioxide 20 mmol/L (22-30); Chloride 109 mmol/L (98-107); Globulin 2.9 g/dL; Glucose 104 mg/dL (74-99); Magnesium 1.6 mg/dL (1.6-2.3); Non-African American GFR(CKD) >90 (>60 ml/min/1.73 sqM); Potassium 2.9 mmol/L (3.5-5.1); Sodium 136 mmol/L (137-145); Total Bilirubin 0.4 mg/dL (0.2-1.3); Total Protein 6.1 g/dL (6.3-8.2)
[2022-04-01] MEDS ORDERED: POTASSIUM CHLORIDE 20 MEQ in WATER FOR INJECTION 1 100ML.BAG IVPB STA (09:18)
[2022-04-01] MEDS ORDERED: NALOXONE 0.4 MG/ML 1 ML VIAL IVP STA ×2 (09:22→10:28)
[2022-04-01] MEDS: MAGNESIUM SULFATE-D5W PMX 1 GM in DEXTROSE/WATER 1 100ML.BAG IVPB SCH ×2 (09:32→11:04)
[2022-04-01] MEDS: SODIUM CHLORIDE 0.9% 1,000 ML IV SCH (12:28)
[2022-04-01] MEDS: D5-0.45% NACL WITH KCL 40MEQ/L 1,000 ML IV SCH (12:29)
--- NOTE | 2022-04-01 13:54 | P.OBCN ---
History of Present Illness Consult date: 04/01/22 Reason for consult: other (, 26 weeks) Chief complaint: Opioid withdrawal History of present illness: The patient is a 32-year-old 3 para 2001 who presented to the ER initially yesterday for symptoms of opioid withdrawal. She was treated and thought to be stable and then sent to [facility] where she was admitted. Apparently, while at [facility], she became significantly more lethargic and was sent back to the emergency room for acute evaluation as result. See the notes from internal medicine and emergency room for further details. Incidentally, she is known to be 26 weeks . She currently has received care somewhere near the city hospital. She reports normal movement, no contractions, no vaginal concerns or complaints. The patient and her family could not identify the name of her doctor to retrieve records though apparently ultrasound has been performed and dating is accurate, labs have been drawn. The patient is relatively lethargic and unable to contribute meaningfully to the interview. The information is mostly provided by the patient's mother. Obstetrical history: 3 para 2001 with 2 term vaginal deliveries. The patient does not have custody of either. The first is with the child's father and the second is with the grandmother. Gynecologic history: Noncontributory Review of Systems Review of systems is confined to history of present illness. Past Medical History Past Medical History: No Reported History History of Any Multi-Drug Resistant Organisms: None Reported Past Surgical History: No Surgical Hx Reported Past Psychological History: No Psychological Hx Reported Smoking Status: Current every day smoker Past Alcohol Use History: None Reported Past Drug Use History: Heroin, IV Drug Use Medications and Allergies Home Medications Medication Instructions Recorded Confirmed Type Acetaminophen [Tylenol 8 Hour] 650 mg PO Q6H PRN 03/30/22 03/31/22 History Folagent Dha Supplement 1 cap PO DAILY 03/30/22 03/31/22 History Zofran (Unknown Dose) 1 dose PO Q6H PRN 03/30/22 03/31/22 History Allergies Allergy/AdvReac Type Severity Reaction Status Date / Time No Known Allergies Allergy Verified 03/31/22 12:09 Exam Vital Signs Temp Pulse Pulse Resp BP BP Pulse Ox 04/01/22 11:55 98.2 F 80 19 124/73 99 04/01/22 09:31 24 04/01/22 04:14 98.2 F 73 18 133/82 99 03/31/22 21:59 98.3 F 62 18 107/56 100 03/31/22 21:29 97.9 F 86 16 118/68 100 03/31/22 20:25 96 16 121/77 98 03/31/22 18:29 98.8 F 102 H 18 119/98 96 03/31/22 17:00 88 16 150/94 98 03/31/22 16:00 78 16 117/77 96 03/31/22 15:00 72 16 117/64 96 Intake and Output 03/31/22 04/01/22 04/01/22 22:59 06:59 14:59 Intake Total 1140 Balance 1140 Intake: Intake, IV Titration 600 Amount Sodium Chloride 0.9% 1, 600 000 ml @ 75 mls/hr IV . [id number] COUNTS INCLUDE 234 BEDS AT THE [facility] Rx#:[id number] Oral 540 Other: Voiding Method Toilet # Voids 2 In general, this is a somewhat confused and lethargic white female in no acute distress. Further examination is not performed as it is not indicated from an obstetrical standpoint and has been performed by the internal medicine team. Results Result Diagrams: 04/01/22 08:39 04/01/22 08:39 Abnormal Lab Results - Last 24 Hours (Table) 03/31/22 04/01/22 04/01/22 Range/Units 17:34 08:39 08:39 WBC 12.1 H (3.8-10.6) k/uL Neutrophils # 10.1 H (1.3-7.7) k/uL ABG pH 7.55 H (7.35-7.45) ABG pCO2 24 L (35-45) mmHg ABG O2 Saturation 98.9 H (94-97) % Sodium 136 L (137-145) mmol/L Potassium 2.9 L (3.5-5.1) mmol/L Chloride 109 H (98-107) mmol/L Carbon Dioxide 20 L (22-30) mmol/L Creatinine 0.40 L (0.52-1.04) mg/dL Glucose 104 H (74-99) mg/dL Calcium 8.2 L (8.4-10.2) mg/dL Total Protein 6.1 L (6.3-8.2) g/dL Albumin 3.2 L (3.5-5.0) g/dL Microbiology - Last 24 Hours (Table) 03/31/22 12:30 Urine Culture - Preliminary Urine,Voided Assessment and Plan (1) 26 weeks gestation of Current Visit: Yes Status: Acute Code(s): Z3A.26 - 26 WEEKS GESTATION OF SNOMED Code(s): 91313351 (2) Altered mental status Current Visit: Yes Status: Acute Code(s): R41.82 - ALTERED MENTAL STATUS, UNSPECIFIED SNOMED Code(s): 943965312 (3) Opioid abuse with withdrawal Current Visit: Yes Status: Acute Code(s): F11.13 - OPIOID ABUSE WITH WITHDRAWAL SNOMED Code(s): 64754198 Plan: As the patient does not have any obstetrical data available here in our system and cannot identify at this time her doctor who has a record, I will repeat basic labs and have an ultrasound performed to confirm reasonable dating. I will also order a heart rate strip once daily to make certain that there is no decelerations or other concerns. I do not anticipate a strictly reactive NST at 26 weeks of gestation. Otherwise, I will follow in the chart and allow internal medicine to take care of her primary needs. Should anything obstetric become of concern, please feel free to contact me.
[2022-04-01] MEDS: ONDANSETRON 4 MG/2 ML VIAL IVP PRN (13:57)
[2022-04-01] MEDS ORDERED: POTASSIUM CHLORIDE ER 20 MEQ TAB.ER PO STA (16:15)
--- NOTE | 2022-04-01 16:29 | P.PN ---
Subjective Progress Note Date: 04/01/22 Principal diagnosis: opiate overdose opiate withdrawal 32 yo female admitted yesterday with altered mental status and positive opiate and cocaine on urine tox screen. This morning she was found to be very lethargic and unresponsive by nursing staff, she received 0.4 mg of IV Narcan with significant improvement in her mentation. Although she became slightly aggressive and agitated. This lasted less than an hour before she calmed down again and got back into bed. She was able to tell me that she takes methadone although she is unsure of the dose or when the last time was. She denies any headaches, no fevers, no shortness of breath, no cough. UA from admission yesterday is suggestive of acute cystitis although she is unable to give a reliable history regarding symptoms. She was started on IV ceftriaxone today Objective - Vital Signs Vital signs: Vital Signs Temp 98.2 F 04/01/22 11:55 Pulse 80 04/01/22 11:55 Resp 19 04/01/22 11:55 BP 124/73 04/01/22 11:55 Pulse Ox 99 04/01/22 11:55 FiO2 Intake & Output 03/31/22 04/01/22 04/01/22 18:59 06:59 18:59 Intake Total 1140 Balance 1140 Weight 72.575 kg Intake: Intake, IV Titration 600 Amount Sodium Chloride 0.9% 1, 600 000 ml @ 75 mls/hr IV . [id number] [facility] Rx#:[id number] Oral 540 Other: Voiding Method Toilet # Voids 2 - Constitutional General appearance: Present: average body habitus, disheveled, mild distress - EENT Eyes: Present: EOMI, PERRLA - Respiratory Respiratory: bilateral: CTA - Cardiovascular Rhythm: regular Heart sounds: normal: S1, S2 Abnormal Heart Sounds: Absent: systolic murmur - Gastrointestinal General gastrointestinal: Present: distended, normal bowel sounds. Absent: tenderness - Integumentary Integumentary: Present: ulcer. Absent: cellulitis - Neurologic Neurologic: Present: CNII-XII intact. Absent: focal deficits - Musculoskeletal Musculoskeletal: Present: strength equal bilaterally - Labs CBC & Chem 7: 04/01/22 08:39 04/01/22 08:39 Labs: Abnormal Lab Results - Last 24 Hours (Table) 03/31/22 04/01/22 04/01/22 Range/Units 17:34 08:39 08:39 WBC 12.1 H (3.8-10.6) k/uL Neutrophils # 10.1 H (1.3-7.7) k/uL ESR (0-20) mm/hr ABG pH 7.55 H (7.35-7.45) ABG pCO2 24 L (35-45) mmHg ABG O2 Saturation 98.9 H (94-97) % Sodium 136 L (137-145) mmol/L Potassium 2.9 L (3.5-5.1) mmol/L Chloride 109 H (98-107) mmol/L Carbon Dioxide 20 L (22-30) mmol/L Creatinine 0.40 L (0.52-1.04) mg/dL Glucose 104 H (74-99) mg/dL Calcium 8.2 L (8.4-10.2) mg/dL Total Protein 6.1 L (6.3-8.2) g/dL Albumin 3.2 L (3.5-5.0) g/dL 04/01/22 Range/Units 11:08 WBC (3.8-10.6) k/uL Neutrophils # (1.3-7.7) k/uL ESR 25 H (0-20) mm/hr ABG pH (7.35-7.45) ABG pCO2 (35-45) mmHg ABG O2 Saturation (94-97) % Sodium (137-145) mmol/L Potassium (3.5-5.1) mmol/L Chloride (98-107) mmol/L Carbon Dioxide (22-30) mmol/L Creatinine (0.52-1.04) mg/dL Glucose (74-99) mg/dL Calcium (8.4-10.2) mg/dL Total Protein (6.3-8.2) g/dL Albumin (3.5-5.0) g/dL Microbiology - Last 24 Hours (Table) 03/31/22 12:30 Urine Culture - Preliminary Urine,Voided Assessment and Plan Plan: # Acute metabolic encephalopathy -Improved today after receiving 1 dose of IV Narcan. Patient admitted to using methadone -Head CT shows no acute findings -Patient has no fever, no leukocytosis, no nuchal rigidity # Opiate Withdrawal -Patient has a long history of IV heroin use, and has recently been taking methadone -Received IV Narcan this morning due to depressed mental state which may have precipitated withdrawal symptoms -Continue to monitor and treat symptoms accordingly -May consider restarting methadone once mentation has improved and dose confirmed # Acute cystitis -No signs of severe sepsis -Started on IV ceftriaxone today -Follow up on urine cultures # Hypokalemia -Potassium 2.7 -Most likely secondary to decreased oral intake -Received IV and oral potassium # History of polysubstance abuse -child protective services social worker consult #- 26 weeks - ultrasound was unremarkable in the ED yesterday -Patient further recommendations from obstetrics Time with Patient: Greater than 30
[2022-04-01 18:36] LABS: Amorphous Sediment,Urine Rare /hpf; Appearance,Urine Turbid (Clear); Bilirubin,Urine Negative (Negative); Blood,Urine Negative (Negative); Color,Urine Yellow; Glucose,Urine (UA) Negative (Negative); Ketones,Urine 1+ (Negative); Leukocyte Esterase,Urine Large (Negative); Mucus,Urine Rare /hpf; Nitrite,Urine Negative (Negative); Protein,Urine Trace (Negative); RBC,Urine 3 /hpf (0-5); Specific Gravity,Urine 1.011 (1.001-1.035); Squamous Epithelial Cell,Urine 5 /hpf (0-4); Urobilinogen,Urine <2.0 mg/dL (<2.0); WBC,Urine 22 /hpf (0-5)
[2022-04-01 18:52] LABS: Hepatitis B Surface Antigen Nonreactive (Nonreactive)
[2022-04-01] MEDS ORDERED: LORazepam 1 MG/0.5 ML VIAL IM PRN (20:01)
[2022-04-02] MEDS ORDERED: ONDANSETRON 4 MG TAB PO PRN (03:33)
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
[2022-04-02] MEDS: D5-0.45% NACL WITH KCL 40MEQ/L 1,000 ML IV SCH ×3 (07:55→16:43)
[2022-04-02] MEDS: [UNRECOGNIZED DRUG - OTHER] PO SCH (07:58)
[2022-04-02 08:54] LABS: Basophils # (A) 0.02 X 10*3/uL (0.00-0.10); Basophils % (A) 0.2 %; Eosinophils # (A) 0.01 X 10*3/uL (0.04-0.35); Eosinophils % (A) 0.1 %; HGB 11.7 g/dL (12.0-15.0); Immature Grans, Automated 0.5 %; Lymphocytes # (A) 1.87 X 10*3/uL (0.90-5.00); Lymphocytes % (A) 15.9 %; MCH 28.9 pg (27.0-32.0); MCHC 33.4 g/dL (32.0-37.0); MCV 86.4 fL (80.0-97.0); Mean Platelet Volume 10.5 fL (9.5-12.2); Monocytes # (A) 0.73 X 10*3/uL (0.20-1.00); Monocytes % (A) 6.2 %; NRBC Per 100 WBC 0 /100 WBCS (0.0-0.0); Neutrophils # (A) 9.04 X 10*3/uL (1.80-7.70); Neutrophils % (A) 77.1 %; Platelet Count 298 X 10*3/uL (140-440); RBC 4.05 X 10*6/uL (4.10-5.20); WBC 11.73 X 10*3/uL (4.50-10.00)
[2022-04-02] MEDS ORDERED: LORazepam 1 MG/0.5 ML VIAL IM PRN (09:00)
[2022-04-02 09:31] LABS: Erythrocyte Sedimentation Rate 19 mm/Hr (0-20)
[2022-04-02] MEDS: ONDANSETRON 4 MG/2 ML VIAL IVP PRN (10:48)
[2022-04-02 11:17] LABS: African American GFR (CKD) 146.4 (60.0-200.0); Albumin 3.3 g/dL (3.8-4.9); Albumin/Globulin Ratio 1.18 (1.60-3.17); Anion Gap 11.4 mmol/L (10.00-18.00); BUN/Creat Ratio 14.8 Ratio (12.00-20.00); Blood Urea Nitrogen 7.4 mg/dL (9.0-27.0); Calcium 8.5 mg/dL (8.7-10.3); Carbon Dioxide 21.6 mmol/L (20.0-27.5); Globulin 2.8 g/dL (1.6-3.3); Non-African American GFR(CKD) 126.3 (60.0-200.0); Potassium 2.9 mmol/L (3.5-5.5); Total Bilirubin 0.5 mg/dL (0.30-1.20); Total Protein 6.1 g/dL (6.2-8.2)
[2022-04-02] MEDS ORDERED: Potassium Replacement Protocol 1 EACH MISC MISCELLANE PRN (11:40)
[2022-04-02] MEDS: POTASSIUM CHLORIDE ER 20 MEQ TAB.ER PO SCH ×4 (11:51→16:42)
[2022-04-02] MEDS ORDERED: DICYCLOMINE 10 MG CAP PO PRN (14:20)
[2022-04-02] MEDS ORDERED: LOPERAMIDE 2 MG CAP PO PRN (14:20)
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
[2022-04-02] MEDS: ONDANSETRON ODT 4 MG TAB PO PRN (21:10)
[2022-04-02] MEDS ORDERED: HALOPERIDOL LACTATE 5 MG/ML 1 ML VIAL IM PRN (21:55)
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
[2022-04-03] MEDS: D5-0.45% NACL WITH KCL 40MEQ/L 1,000 ML IV SCH ×3 (00:10→20:38)
[2022-04-03] MEDS: PRENATAL VIT-IRON-FOLIC ACID 1 EACH TABLET PO SCH (07:56)
[2022-04-03] MEDS: POTASSIUM CHLORIDE ER 20 MEQ TAB.ER PO SCH (07:56)
--- NOTE | 2022-04-03 13:37 | P.PN ---
Subjective Progress Note Date: 04/03/22 Hospital course 32-year-old 3 para 2001 who presented to the ER initially yesterday for symptoms of opioid withdrawal. She was treated and thought to be stable and then sent to [facility] where she was admitted. Apparently, while at [facility], she became significantly more lethargic and was sent back to the emergency room for acute evaluation Incidentally, she is known to be 26 weeks . She currently has received care somewhere near the [facility]. She reports normal movement, no contractions, no vaginal concerns or complaints. Subjective Patient seen and evaluated at bedside, today patient does not report any worsening of his breathing or report any new significant chest pain. Patient remains in no acute distress. Patient questions and concerns addressed at bedside, proper counseling done. Plan discussed with nursing staff. Objective Physicial exam General appearance: lethargic Head exam: Present: atraumatic, normocephalic, normal inspection Eye exam: Present: normal appearance, PERRL, EOMI. Absent: scleral icterus, conjunctival injection, periorbital swelling Respiratory exam: Present: normal lung sounds bilaterally. Absent: respiratory distress, wheezes, rales, rhonchi, stridor Cardiovascular Exam: Present: regular rate, normal rhythm, normal heart sounds. Absent: systolic murmur, diastolic murmur, rubs, gallop, clicks Skin exam: Present: warm, dry, intact, normal color. Absent: rash Assessment and Plan # Acute metabolic encephalopathy -Patient has a known history of substance abuse including heroin and cocaine -Initially presented with what appeared to be opiate overdose, improved with Narcan -Head CT shows no acute findings -Per pharmacy Suboxone shortage will give 1 dose of methadone today # Opiate Withdrawal -Methadone today 1 dose, resume Suboxone from tomorrow -Continue symptomatic management for withdrawal symptoms # Hypokalemia -Monitor electrolytes replace as needed # Suspected UTI -continue Ceftriaxone, can switch to Keflex # History of polysubstance abuse -social work consult #- 26 weeks - ultrasound was unremarkable in the ED yesterday -Patient further recommendations from obstetrics Discharge plan: Likely back to [facility] next 1-2 days once patient clinically stable Objective - Vital Signs Vital signs: Vital Signs Temp 97.9 F 04/03/22 13:00 Pulse 77 04/03/22 13:00 Resp 16 04/03/22 13:00 BP 109/63 07/17/22 13:00 Pulse Ox 97 04/03/22 13:00 FiO2 Intake & Output 04/02/22 04/03/22 04/03/22 18:59 06:59 18:59 Intake Total 2400 Balance 2400 Intake: Oral 2400 Other: Voiding Method Toilet Toilet Toilet # Voids 7 2 - Labs CBC & Chem 7: 04/02/22 05:57 04/02/22 05:46 Labs: Microbiology - Last 24 Hours (Table) 04/01/22 11:08 Blood Culture - Preliminary Blood No Growth after 48 hours
[2022-04-03 16:15] LABS: HIV 2 AB Non-Reactive (Non-Reactive); HIV AB P24 Non-Reactive (Non-Reactive); HIV P24 AG Non-Reactive (Non-Reactive)
[2022-04-03 19:28] VITALS: RESP 18
[2022-04-03] MEDS: CEPHALEXIN 500 MG CAP PO SCH (20:38)
[2022-04-03] MEDS ORDERED: METHADONE 10 MG TAB PO ONE (21:00)
[2022-04-04] MEDS: ONDANSETRON ODT 4 MG TAB PO PRN (03:57)
[2022-04-04] MEDS: D5-0.45% NACL WITH KCL 40MEQ/L 1,000 ML IV SCH (07:45)
[2022-04-04] MEDS ORDERED: cloNIDine HCL 0.1 MG TAB PO PRN (07:51)
[2022-04-04] MEDS: CEPHALEXIN 500 MG CAP PO SCH (09:13)
[2022-04-04] MEDS: PRENATAL VIT-IRON-FOLIC ACID 1 EACH TABLET PO SCH (09:14)
[2022-04-04] MEDS: POTASSIUM CHLORIDE ER 20 MEQ TAB.ER PO SCH (09:14)
[2022-04-04 10:53] LABS: Basophils # (A) 0.02 X 10*3/uL (0.00-0.10); Basophils % (A) 0.2 %; Eosinophils # (A) 0.08 X 10*3/uL (0.04-0.35); Eosinophils % (A) 0.9 %; HCT 33.3 % (37.2-46.3); Immature Grans, Automated 0.8 %; Lymphocytes # (A) 2.11 X 10*3/uL (0.90-5.00); Lymphocytes % (A) 24.7 %; MCV 87.9 fL (80.0-97.0); Mean Platelet Volume 10.8 fL (9.5-12.2); Monocytes # (A) 0.58 X 10*3/uL (0.20-1.00); Monocytes % (A) 6.8 %; NRBC Per 100 WBC 0 /100 WBCS (0.0-0.0); Neutrophils # (A) 5.67 X 10*3/uL (1.80-7.70); Neutrophils % (A) 66.6 %; Platelet Count 243 X 10*3/uL (140-440); RBC 3.79 X 10*6/uL (4.10-5.20); RDW 13.1 % (11.5-14.5); WBC 8.53 X 10*3/uL (4.50-10.00)
[2022-04-04 11:14] LABS: African American GFR (CKD) 146.4 (60.0-200.0); Albumin 3.1 g/dL (3.8-4.9); Albumin/Globulin Ratio 1.24 (1.60-3.17); Anion Gap 10.6 mmol/L (10.00-18.00); BUN/Creat Ratio 7.4 Ratio (12.00-20.00); Blood Urea Nitrogen 3.7 mg/dL (9.0-27.0); Calcium 8.3 mg/dL (8.7-10.3); Carbon Dioxide 21.4 mmol/L (20.0-27.5); Globulin 2.5 g/dL (1.6-3.3); Non-African American GFR(CKD) 126.3 (60.0-200.0); Potassium 3.4 mmol/L (3.5-5.5); Total Bilirubin 0.2 mg/dL (0.30-1.20); Total Protein 5.6 g/dL (6.2-8.2)
[2022-04-04 11:37] VITALS: BP 99/55; PULSE 69; TEMP 97.9
--- NOTE | 2022-04-04 13:32 | P.PN ---
Progress Note - Text Progress Note Date: 04/04/22 Interval History: Patient was seen in follow-up to psychiatry consultation for "petition, aggressive behavior, harm to others". Per staff, patient has not had episodes of agitation on Monday or so far today. On my assessment, she is alert and oriented to person, place, time and situation. She is calm and attempts to cooperative. At this time patient denies any suicidal or homical ideations, intent or plan. Patient denies any auditory, visual hallucinations and denies any paranoia or delusions. Patient denies any side effects from the medications and has been compliant with meds. She is focused on discharged and plans to return to [facility] for inpatient substance abuse treatment. Mental Status Exam: General Appearance: Patient appears to be stated age, hygiene is improved. Behavior: Patient is calmly lying in bed without any agitated behavior at this time. Speech: Patient's speech is coherent and non-pressured. Mood/Affect: Mood is good, affect is congruent/euthymic. Suicidality/Homicidality: Patient denies having any suicidal or homicidal ideation intent or plan. Perceptions: Patient denies any visual hallucinations and denies any auditory hallucinations. Though content/process: There is no evidence of any delusional thought content and thought process is linear and goal-directed. Memory and concentration: Alert and oriented to person, place, time and situation. Judgment and insight: Chronically poor Assessment Unspecified episodic mood disorder Rule out substance induced mood disorder Bipolar Disorder by history Opioid use disorder, severe Opioid withdrawal - resolved Tobacco use disorder Plan: -At this time, patient DOES NOT meet criteria for inpatient psychiatric admission. -Medications: Continue current medications. No changes to medications at this time. -Agree with plan to discharge to [facility] for inpatient substance abuse treatment. -She will need to follow-up with an outpatient psychiatrist and therapist, as well as continue outpatient substance abuse treatment (such as [facility]) after discharge from [facility]. -Psychiatry will sign-off at this time. -Please contact with any questions.
--- NOTE | 2022-04-04 14:40 | P.DS ---
Providers Date of admission: 04/01/22 12:25 Expected date of discharge: 04/04/22 Attending physician: Carlos Manuel Whalen MD Consults: 03/31/22 16:24 Consult Physician Urgent Consulting Provider: Evelia Arana Consult Reason/Comments: 26 weeks , opioid withdrawal delirium Do you want consulting provider notified?: Yes 04/02/22 03:14 Consult Physician Routine Consulting Provider: Leo Reynoso Consult Reason/Comments: Petition, aggressive behavior, harm to others. Do you want consulting provider notified?: Yes, Notify in am 04/03/22 14:17 Consult Physician Routine Consulting Provider: Shanika Garcia Consult Reason/Comments: Left Axilla follicle abscess Do you want consulting provider notified?: Yes Primary care physician: Stated None Hospital Course: Discharge Diagnosis: Acute toxic metabolic encephalopathy,secondary to opiates as it improved with Narcan Opiate withdrawal Hypokalemia Urinary tract infection Intrauterine , 26 weeks Hospital Course: Patient is a 32-year-old female with history of opiate drug abuse who is 26 weeks and presented to the emergency department with altered mentation. She had been at [facility] for treatment of heroin withdrawal who came back to the ER from there to being lethargic with an unsteady gait. She is admitted for further monitoring. Head CT demonstrated no acute process. She was found have severe hypokalemia. She admitted having some nausea and vomiting. She was started on potassium supplementation and admitted for further monitoring. She was seen by TRACK SUPERINTENDENT. She did have an ultrasound on her prior year admission which confirmed a viable 26 week . Her lethargy resolved throughout her hospital stay. She was seen by psychiatry who determined returning to [facility] was the most appropriate process. Her potassium levels stabilized. She was determined stable for discharge to [facility]. She was also found to have bacteriuria and will complete a seven-day course of antibiotics. She will have 5 additional days of antibiotics as well as 3 additional days of potassium and scripts were sent to [facility]. She will need to follow-up with her primary TRACK SUPERINTENDENT Dr. Galan for the remiander of her . Patient seen and examined at bedside. Deneis pain, doing well, wants to go back to [facility]. Vital signs reviewed and stable. General: nontoxic, no distress, appears at stated age Derm: warm, dry Head: atraumatic, normocephalic, symmetric Eyes: EOMI, no lid lag, anicteric sclera Mouth: no lip lesion, mucus membranes moist Cardiovascular: S1S2 reg, no murmur, positive posterior tibial pulse bilateral, Lungs: CTA bilateral, no rhonchi, no rales , no accessory muscle use Abdominal: soft, nontender to palpation, no guarding, no appreciable organomegaly Ext: no gross muscle atrophy, no edema, no contractures Neuro: CN II-XI grossly intact, no focal neuro deficits Psych: Alert, oriented, appropriate affect A total of 37 minutes of time were spent preparing this complex discharge summary. Patient was discharged on 04/04/22. Patient Condition at Discharge: Stable Plan - Discharge Summary New Discharge Prescriptions: New Potassium Chloride ER [K-Dur 20] 40 meq PO DAILY #3 tab Cephalexin [Keflex] 500 mg PO BID #10 cap Continue Acetaminophen [Tylenol 8 Hour] 650 mg PO Q6H PRN PRN Reason: Pain Or Fever > 100.5 Folagent Dha Supplement 1 cap PO DAILY Zofran (Unknown Dose) 1 dose PO Q6H PRN PRN Reason: Nausea Discharge Medication List Acetaminophen [Tylenol 8 Hour] 650 mg PO Q6H PRN 03/30/22 [History] Folagent Dha Supplement 1 cap PO DAILY 03/30/22 [History] Zofran (Unknown Dose) 1 dose PO Q6H PRN 03/30/22 [History] Cephalexin [Keflex] 500 mg PO BID #10 cap 04/04/22 [Rx] Potassium Chloride ER [K-Dur 20] 40 meq PO DAILY #3 tab 04/04/22 [Rx] Follow up Appointment(s)/Referral[facility]s): [facility] [Outside] - 1 Week Zain Galan MD [STAFF PHYSICIAN] - 1 Week (patient to make follow up appt) None,Stated [Primary Care Provider] - 1-2 days Patient Instructions/Handouts: Cephalexin (By mouth), Potassium Chloride (By mouth) Activity/Diet/Wound Care/Special Instructions: Activity: as tolerated Diet: regular, related restrictions Special Instructions: Abstain from illicit substances
--- NOTE | 2022-04-04 15:05 | P.GSCN ---
History of Present Illness Consult date: 04/04/22 History of present illness: CHIEF COMPLAINT: Altered mental status changes HISTORY OF PRESENT ILLNESS: This is a 32-year-old female presented to the hospital with altered mental status changes and lethargy. She is 36 weeks . Patient has been at [facility] for treatment of heroin withdrawal. Patient's mentation improved after Narcan given. Patient was found to have hypokalemia. She also was found to have an abscess in the left axilla area. She was started on antibiotics. Surgical consult requested for evaluation of the left axilla abscess. Patient reports that she has had drainage from this abscess. She reports she's had prior abscesses. She denies any fever, chills or sweats. Patient is tolerating diet. Her white count has normalized. Kassandra breana reports that she is scheduled for discharge later today. PAST MEDICAL HISTORY: See list. PAST SURGICAL HISTORY: See list. MEDICATIONS: See list. ALLERGIES: See list. SOCIAL HISTORY: No illicit drug use. REVIEW OF SYSTEMS: CONSTITUTIONAL: Denies fever or chills. HEENT: Denies blurred vision, vision changes, or eye pain. Denies hemoptysis ENDOCRINE: Denies heat or cold intolerance. CARDIOVASCULAR: Denies chest pain or pressure. RESPIRATORY: No shortness of breath. GASTROINTESTINAL: Denies abdominal pain. Denies nausea or vomiting. NEURO: Denies history of seizures. PSYCH: No depression or suicidal ideation HEMATOLOGIC: Denies bleeding disorders. LYMPHATIC: The patient denies any lumps and bumps around the neck. GENITOURINARY: Denies any blood in urine or increased urinary frequency. MUSCULOSKELETAL: Denies myalgias. Denies joint swelling. Denies decreased range of motion beyond patients baseline. SKIN: Denies pruitis. Denies rash. PHYSICAL EXAM: VITAL SIGNS: Reviewed GENERAL: Well-developed in no acute distress. HEENT: No sclera icterus. Extraocular movements grossly intact. Moist buccal mucosa. Head is atraumatic, normocephalic. Hears conversational speech. No nasal drainage. NECK: Supple without lymphadenopathy. CHEST: Non-labored respirations and equal bilateral excursions. CARDIOVASCULAR: Palpable 2+ radial pulses. ABDOMEN: Soft. Nondistended. Nontender MUSCULOSKELETAL: No clubbing or cyanosis. NEUROLOGIC: No focal or lateralizing signs. Cranial nerves II through XII grossly intact. PSYCH: Appropriate affect. Alert and oriented to person, place and time. SKIN: Well perfused. Good skin turgor. Extremities:. Left axilla 1 cm abscess. no drainage noted. Minimal erythema. Soft. Nontender. LABORATORY DATA: WBC 12.1 down to 8.53 Hgb is 11.0 platelets 243 sodium 136 potassium is 3.4 creatinine 0.5 IMAGING: ASSESSMENT: 1. Left axilla abscess with spontaneous drainage 2. History of IV drug use 3. 26 weeks 4. Hypokalemia PLAN: -Apply warm compresses to left axilla abscess -Encouraged patient to shower daily -Continue antibiotics per medicine service -No surgical intervention planned -Patient can be discharged from surgical standpoint when medically cleared -Potassium replacement per medicine service Thank you for this consultation Physician Bpm Analyst note has been reviewed by physician. Signing provider agrees with the documented findings, assessment, and plan of care. Patient seen and evaluated. She reports pre-existing history of abscesses along the left axilla. She reports drainage. No need for surgical intervention. Conservative management with warm compresses. Past Medical History Past Medical History: No Reported History History of Any Multi-Drug Resistant Organisms: None Reported Past Surgical History: No Surgical Hx Reported Past Psychological History: No Psychological Hx Reported Smoking Status: Current every day smoker Past Alcohol Use History: None Reported Past Drug Use History: Heroin, IV Drug Use Medications and Allergies Home Medications Medication Instructions Recorded Confirmed Type Acetaminophen [Tylenol 8 Hour] 650 mg PO Q6H PRN 03/30/22 03/31/22 History Folagent Dha Supplement 1 cap PO DAILY 03/30/22 03/31/22 History Zofran (Unknown Dose) 1 dose PO Q6H PRN 03/30/22 03/31/22 History Cephalexin [Keflex] 500 mg PO BID #10 cap 04/04/22 Rx Potassium Chloride ER [K-Dur 20] 40 meq PO DAILY #3 tab 04/04/22 Rx Allergies Allergy/AdvReac Type Severity Reaction Status Date / Time No Known Allergies Allergy Verified 03/31/22 12:09 Surgical - Exam Vital Signs Temp Pulse Resp BP Pulse Ox 97.9 F 51 L 16 111/66 99 03/31/22 11:29 03/31/22 11:29 03/31/22 11:29 03/31/22 11:29 03/31/22 11:29 Results - Labs 04/04/22 05:45 04/04/22 05:45 Microbiology - Last 24 Hours (Table) 04/01/22 11:08 Blood Culture - Preliminary Blood No Growth after 48 hours
== END 2022-04-04 14:35 | disposition home or self-care (01) | DRG 831 ==
LOC: EC 11:24 → 6NMEDSUR 16:27 → 5NMEDONC 19:16 → OBSVTOIN 04-01 12:25
PROVIDERS: ADMIT Internal Medicine; ATTEND Internal Medicine
DX: O99.322 Drug use complicating pregnancy, second trimester (principal); G92.8 Other toxic encephalopathy; O23.42 Unspecified infection of urinary tract in pregnancy, second trimester; F11.23 Opioid dependence with withdrawal; N30.00 Acute cystitis without hematuria; L02.412 Cutaneous abscess of left axilla; E86.0 Dehydration; F31.9 Bipolar disorder, unspecified; F14.10 Cocaine abuse, uncomplicated; O99.353 Diseases of the nervous system complicating pregnancy, third trimester; O99.712 Diseases of the skin and subcutaneous tissue complicating pregnancy, second trimester; O99.342 Other mental disorders complicating pregnancy, second trimester; O99.282 Endocrine, nutritional and metabolic diseases complicating pregnancy, second trimester; O99.332 Smoking (tobacco) complicating pregnancy, second trimester; Z3A.26 26 weeks gestation of pregnancy; F41.9 Anxiety disorder, unspecified; E87.6 Hypokalemia; F17.200 Nicotine dependence, unspecified, uncomplicated; Z79.899 Other long term (current) drug therapy; Z56.0 Unemployment, unspecified; Z78.1 Physical restraint status
CPT/HCPCS: 36415; 36600; 70450; 80053; 80306; 81001; 82140; 82553; 82805; 83735; 84145; 84484; 84702; 85025; 85652; 86140; 86762; 86780; 86850; 86900; 86901; 87040; 87086; 87340; 87390; 96361; 96374; 99285

== ENCOUNTER 2022-08-12 16:10 | Emergency (ER) | payer OTHER ==
[2022-08-12 16:52] VITALS: TEMP 99
--- NOTE | 2022-08-12 20:12 | ED ---
General Adult HPI - General Chief complaint: Extremity Injury, Upper Stated complaint: R wrist sore Time Seen by Provider: 08/12/22 19:51 Source: patient, RN notes reviewed Mode of arrival: ambulatory Limitations: no limitations - History of Present Illness Initial comments: 32-year-old female presents to the emergency Department with complaints of decr eased range of motion in the right wrist and hand. Patient states this has been an ongoing issue for the past 3 weeks. States she shot up with cocaine in that area 3 weeks ago and has not been able to use her hand since. States she is unable to grasp objects or use a pencil. She checked into [facility] today for rehab; last use 0200 today. Was sent for evaluation. Denies pain, swelling, redness, and loss of sensation. - Related Data Home Medications Medication Instructions Recorded Confirmed Acetaminophen [Tylenol 8 Hour] 650 mg PO Q6H PRN 03/30/22 03/31/22 Folagent Dha Supplement 1 cap PO DAILY 03/30/22 03/31/22 Zofran (Unknown Dose) 1 dose PO Q6H PRN 03/30/22 03/31/22 Previous Rx's Medication Instructions Recorded Cephalexin [Keflex] 500 mg PO BID #10 cap 04/04/22 Potassium Chloride ER [K-Dur 20] 40 meq PO DAILY #3 tab 04/04/22 Allergies Allergy/AdvReac Type Severity Reaction Status Date / Time No Known Allergies Allergy Verified 08/12/22 16:52 Review of Systems ROS Statement: Those systems with pertinent positive or pertinent negative responses have been documented in the HPI. ROS Other: All systems not noted in ROS Statement are negative. Past Medical History Past Medical History: No Reported History History of Any Multi-Drug Resistant Organisms: None Reported Past Surgical History: No Surgical Hx Reported Past Psychological History: No Psychological Hx Reported Smoking Status: Current every day smoker Past Alcohol Use History: None Reported Past Drug Use History: Heroin, IV Drug Use General Exam Limitations: no limitations General appearance: alert, in no apparent distress ENT exam: Present: normal oropharynx, mucous membranes moist Respiratory exam: Present: normal lung sounds bilaterally. Absent: respiratory distress, wheezes, rales, rhonchi, stridor Cardiovascular Exam: Present: regular rate, normal rhythm, normal heart sounds. Absent: systolic murmur, diastolic murmur, rubs, gallop, clicks GI/Abdominal exam: Present: soft, normal bowel sounds. Absent: distended, tenderness, guarding, rebound, rigid Right Elbow exam: Present: normal inspection, full ROM. Absent: tenderness, swelling Forearm Wrist exam: Absent: normal inspection, full ROM (impaired extension and flexion of wrist and fingers on the right hand; appearance of wrist drop), tenderness, swelling, deformity, erythema, tenderness over anatomical snuff box Hand Wrist exam: Absent: deformity, erythema Neuro motor exam: Absent: wrist extension intact, thumb opposition intact, thumb IP flexion intact, thumb adduction intact, fingers 2-5 abduction intact Vascular: Present: normal capillary refill, radial pulse, ulnar pulse. Absent: vascular compromise, Pallo Psychiatric exam: Present: flat affect Skin exam: Present: warm, dry, intact, normal color. Absent: rash Course Vital Signs 08/12/22 08/12/22 16:50 22:05 Temperature 99 F Pulse Rate 83 80 Respiratory 18 16 Rate Blood Pressure 109/69 133/79 O2 Sat by Pulse 97 97 Oximetry Medical Decision Making - Medical Decision Making 32-year-old female with a past medical history of IVDA presents to the emergency department for evaluation of right wrist drop. Upon exam patient is answering questions appropriately and explains that her wrist has been in this condition for the last 3 weeks. States she shot up and presumes that she hit a nerve. Patient has some paresthesia and diminished sensation in the radial surface of the affected hand. No pain or erythema, or evidence of infection. Decreased abe teacher strength. X-ray was obtained and was negative. Discussed findings with patient including the duration of radial nerve palsy. Instructed on symptomatic management and encouraged to follow up with orthopedics for recheck. Return parameters discussed in detail. Patient verbalizes understanding and agrees with this plan. Attending: Cailin. - Radiology Data Radiology results: report reviewed, image reviewed X-ray of the right hand was obtained. Report was reviewed in its entirety. Impression per Dr. Miller is no foreign body seen. No evidence of fracture. X-ray of the right wrist was obtained. Report was reviewed in its entirety. Impression per Dr. Miller is normal right wrist exam. Disposition Clinical Impression: Right radial nerve palsy Disposition: HOME SELF-CARE Condition: Stable Instructions (If sedation given, give patient instructions): Radial Nerve Palsy (ED) Additional Instructions: Keep affected extremity elevated or propped up on a pillow while at rest. May take Tylenol or Motrin if needed for discomfort. This condition takes time to resolve. Follow-up with your PCP for a recheck next week if needed. Is patient prescribed a controlled substance at d/c from ED?: No Referrals: None,Stated [Primary Care Provider] - 1-2 days Time of Disposition: 21:52
--- NOTE | 2022-08-12 20:52 | XR ---
EXAMINATION TYPE: XR hand complete RT DATE OF EXAM: 08/12/2022 COMPARISON: NONE HISTORY: Heroin injection TECHNIQUE: 3 views FINDINGS: Metacarpals are intact. I see no fracture nor dislocation. No focal bone destruction. No ev idence of a radiopaque foreign body. IMPRESSION: No foreign body seen. No evidence of a fracture.
--- NOTE | 2022-08-12 20:53 | XR ---
EXAMINATION TYPE: XR wrist complete RT DATE OF EXAM: 08/12/2022 COMPARISON: NONE HISTORY: Pain. Heroin injection TECHNIQUE: 5 views FINDINGS: There is no sign of fracture nor dislocation. No sign of foreign body. Joint spaces are nor mal. IMPRESSION: Normal right wrist exam.
[2022-08-12 22:06] VITALS: BP 133/79; PULSE 80; RESP 16
== END 2022-08-12 22:23 | disposition home or self-care (01) ==
LOC: EC 16:10
DX: G56.31 Lesion of radial nerve, right upper limb (principal); F17.200 Nicotine dependence, unspecified, uncomplicated
CPT/HCPCS: 99283